=== PATIENT | female | born 1980 | race Hispanic/Latino ===

== ENCOUNTER → 2023-10-20 18:57 | Outpatient (REF) | payer BC, SELFPAY | LOC: WDC 18:57 | PROVIDERS: ATTENDING PHYSICIAN Obstetrics & Gynecology | DX: Z12.31 Encounter for screening mammogram for malignant neoplasm of breast (principal) | CPT/HCPCS: 77063; 77067 ==

== ENCOUNTER → 2023-11-25 11:04 | Outpatient (REF) | payer BC, SELFPAY | LOC: WDC 11:04 | PROVIDERS: ATTENDING PHYSICIAN Obstetrics & Gynecology | DX: R92.2 Inconclusive mammogram (principal) | CPT/HCPCS: 76641 ==

== ENCOUNTER → 2024-05-18 14:12 | Outpatient (REF) | payer BC, SELFPAY | LOC: WDC 14:12 | PROVIDERS: ATTENDING PHYSICIAN Obstetrics & Gynecology | DX: R93.89 Abnormal findings on diagnostic imaging of other specified body structures (principal); R92.2 Inconclusive mammogram | CPT/HCPCS: 76642 ==

== ENCOUNTER → 2024-10-04 15:21 | Outpatient (REF) | payer BC, SELFPAY | LOC: RAD 15:21 | PROVIDERS: ATTENDING PHYSICIAN Obstetrics & Gynecology; FAMILY PHYSICIAN Family Medicine | DX: T83.32XA Displacement of intrauterine contraceptive device, initial encounter (principal) | CPT/HCPCS: 76830; 76856 ==

== ENCOUNTER → 2024-10-22 12:36 | Outpatient (REF) | payer BC, SELFPAY | LOC: WDC 12:36 | PROVIDERS: ATTENDING PHYSICIAN Obstetrics & Gynecology | DX: R92.8 Other abnormal and inconclusive findings on diagnostic imaging of breast (principal) | CPT/HCPCS: 77063; 77067 ==